=== PATIENT | male | born 1940 | race Two or more races ===

== ENCOUNTER 2017-06-26 12:51 | Outpatient (CLI) | payer OTHER ==
[~2017-06-26 12:51] MED LIST: AMLODIPINE BESYL5 MG PO; LOSARTAN-HCTZ1 EACH PO; OMEPRAZOLE20 MG; SIMVASTATIN40 MG PO; TAMS0.4C PO; ZOCOR20 MG
== END 2017-06-26 13:00 | disposition home or self-care (01) ==
LOC: RAD 12:51
DX: M46.1 Sacroiliitis, not elsewhere classified (principal)

== ENCOUNTER 2018-07-18 11:08 | Emergency (ER) | payer OTHER ==
[~2018-07-18] VITALS: Ht 175.3 cm; Wt 96.2 kg
== END 2018-07-18 16:57 | disposition home or self-care (01) ==
LOC: ER 11:08
DX: R10.31 Right lower quadrant pain (principal)

== ENCOUNTER 2018-08-06 08:35 | Outpatient (CLI) | payer OTHER | END 2018-08-06 09:07 | disposition home or self-care (01) | LOC: RAD 501 08:35 | DX: N20.0 Calculus of kidney (principal) ==

== ENCOUNTER 2018-08-08 11:00 | Day surgery (SDC) | payer OTHER, BC | END 2018-08-08 18:40 | disposition home or self-care (01) | LOC: CIR.AMB 11:00 | DX: N21.0 Calculus in bladder (principal) ==

== ENCOUNTER 2020-10-07 13:14 | Outpatient (CLI) | payer OTHER, BC | END 2020-10-07 13:28 | disposition home or self-care (01) | LOC: MRI 13:14 | PROVIDERS: ATTEND Anesthesiology | DX: M54.2 Cervicalgia (principal); G43.711 Chronic migraine without aura, intractable, with status migrainosus | CPT/HCPCS: 70551; 72141 ==

== ENCOUNTER 2021-03-30 12:26 | Outpatient (CLI) | payer OTHER | END 2021-03-30 12:45 | disposition home or self-care (01) | LOC: MRI 12:26 | PROVIDERS: ATTEND Anesthesiology | DX: M51.36 Other intervertebral disc degeneration, lumbar region (principal) | CPT/HCPCS: 72148 ==

== ENCOUNTER 2023-03-26 11:51 | Inpatient (IN) | payer OTHER, BC ==
[~2023-03-26] VITALS: Ht 172.7 cm; Wt 89.8 kg
[2023-03-26 14:12] LABS: HEMATOCRIT 44.8 % (39.0-48.0); HEMOGLOBIN 15.2 g/dL (13-16.00); MEAN CELL VOLUME 101.1 fL (80.0-100.00); MEAN CORPUSCULAR HEMOGLOBIN 34.3 pg (27.00-32.0); MEAN CORPUSCULAR HGB CONC 33.9 g/dl (32.0-36.0); RED BLOOD COUNT 4.44 M/uL (4.00-6.00); RED CELL DISTRIBUTION WIDTH 13.3 % (11.5-14.5)
[2023-03-26 14:35] LABS: URINE APPEARANCE Clear; URINE BILIRRUBIN Small (NEGATIVE); URINE BLOOD Small; URINE COLOR Dark Yellow; URINE GLUCOSE Negative (NEGATIVE); URINE LEUKOCYTE Trace; URINE NITRATE Negative
[2023-03-26 14:38] LABS: ALBUMIN 3.2 gm/dL (3.4-5.0); BILIRUBIN TOTAL 0.8 mg/dL (0.3-1.2); BILIRUBIN,CONJUGATED 0.27 mg/dL (0.0-0.2); BILIRUBIN,UNCONJUGATED 0.53 mg/dL (0.0-0.6); CALCIUM 9.2 mg/dL (8.5-10.1); CREATININE SERUM 1.03 mg/dL (0.70-1.30); GFR 69.31; POTASSIUM 3.76 mEq/L (3.5-5.1); TOTAL PROTEIN 6.9 gm/dL (6.4-8.2)
[2023-03-26 14:39] LABS: URINE BACTERIA 76.8 uL (0.0-1933); URINE EPITHELIAL CELLS 8.6 uL (0.0-38.8); URINE RBC 21.1 uL (0.0-20.8); URINE WBC 5.5 uL (0.0-23.2)
[2023-03-26 14:49] LABS: URINE PROTEIN 300 (NEGATIVE)
[2023-03-26 15:08] LABS: PLATELET COUNT 12 K/uL (150-450)
[2023-03-26 22:15] LABS: RH POSITIVE
[2023-03-27 08:28] LABS: URINE APPEARANCE Clear; URINE BILIRRUBIN Negative (NEGATIVE); URINE BLOOD Moderate; URINE COLOR Yellow; URINE GLUCOSE Negative (NEGATIVE); URINE LEUKOCYTE Negative; URINE NITRATE Negative
[2023-03-27 08:32] LABS: URINE BACTERIA 23.9 uL (0.0-1933); URINE RBC 122.7 uL (0.0-20.8)
[2023-03-27 08:50] LABS: URINE EPITHELIAL CELLS 0.9 uL (0.0-38.8); URINE PROTEIN 100 (NEGATIVE); URINE WBC 0.6 uL (0.0-23.2)
[2023-03-27 10:47] LABS: HEMATOCRIT 40.5 % (39.0-48.0); HEMOGLOBIN 13.7 g/dL (13-16.00); MEAN CELL VOLUME 101.3 fL (80.0-100.00); MEAN CORPUSCULAR HEMOGLOBIN 34.3 pg (27.00-32.0); MEAN CORPUSCULAR HGB CONC 33.9 g/dl (32.0-36.0); RED CELL DISTRIBUTION WIDTH 13.1 % (11.5-14.5)
[2023-03-27 10:53] LABS: ERYTHROCYTE SEDIMENTATION RATE 26 mm/hr
[2023-03-27 11:13] LABS: INR 1.05
[2023-03-27 11:14] LABS: PARTIAL THROMBOPLASTIN TIME 38.9 SECONDS (22.0-34.0)
[2023-03-27 11:23] LABS: ALBUMIN 2.8 gm/dL (3.4-5.0); BILIRUBIN TOTAL 0.73 mg/dL (0.3-1.2); BILIRUBIN,CONJUGATED 0.28 mg/dL (0.0-0.2); BILIRUBIN,UNCONJUGATED 0.45 mg/dL (0.0-0.6); C-REACTIVE PROTEIN 1.4 MG/DL (0.00-0.29); CHOL HDL RATIO 2.7 (0-5.0); CREATININE SERUM 0.81 mg/dL (0.70-1.30); GFR 91.46; GLOBULINA 3.2 G/DL (2.4-3.5); POTASSIUM 3.97 mEq/L (3.5-5.1)
[2023-03-27 11:31] LABS: PLATELET COUNT 11 K/uL (150-450)
[2023-03-27 12:13] LABS: COL ADP >300 SECONDS (56-102); COL EPI 234 SECONDS (82-175)
[2023-03-27 12:47] LABS: ob NEGATIVE (NEGATIVE)
[2023-03-28 06:59] LABS: HEMATOCRIT 38.7 % (39.0-48.0); HEMOGLOBIN 13.3 g/dL (13-16.00); MEAN CELL VOLUME 99.4 fL (80.0-100.00); MEAN CORPUSCULAR HEMOGLOBIN 34.2 pg (27.00-32.0); MEAN CORPUSCULAR HGB CONC 34.5 g/dl (32.0-36.0); RED BLOOD COUNT 3.89 M/uL (4.00-6.00); RED CELL DISTRIBUTION WIDTH 13.2 % (11.5-14.5)
[2023-03-28 08:19] LABS: PLATELET COUNT 17 K/uL (150-450)
[2023-03-28 19:04] LABS: HEMATOCRIT 39.6 % (39.0-48.0); HEMOGLOBIN 13.7 g/dL (13-16.00); MEAN CELL VOLUME 98.9 fL (80.0-100.00); MEAN CORPUSCULAR HEMOGLOBIN 34.1 pg (27.00-32.0); MEAN CORPUSCULAR HGB CONC 34.5 g/dl (32.0-36.0); RED CELL DISTRIBUTION WIDTH 13.3 % (11.5-14.5)
[2023-03-28 19:09] LABS: PLATELET COUNT 81 K/uL (150-450)
== END 2023-03-29 21:00 | disposition home or self-care (01) | DRG 866 ==
LOC: ER 11:51 → MEDI 18:18 → MEDJ 18:18 → SEC-K 18:28 → MEDJ 20:01
PROVIDERS: General Practice; Internal Medicine Hematology & Oncology; ADMIT Specialist; ATTEND Specialist
PROC: BW21ZZZ Computerized Tomography (CT Scan) of Abdomen and Pelvis (ICD-10-PCS; 2023-03-26)
PROC: 30233R1 Transfusion of Nonautologous Platelets into Peripheral Vein, Percutaneous Approach (ICD-10-PCS; principal; 2023-03-27)
DX: A90 Dengue fever [classical dengue] (principal); D69.6 Thrombocytopenia, unspecified; B34.9 Viral infection, unspecified; R74.01 Elevation of levels of liver transaminase levels; I10 Essential (primary) hypertension; Z87.891 Personal history of nicotine dependence

== ENCOUNTER 2024-05-24 12:13 | Emergency (ER) | payer OTHER, BC ==
[~2024-05-24] VITALS: Ht 170.2 cm; Wt 90.7 kg
[~2024-05-24 12:13] MED LIST changes: +AMLODIPINE-OLM1 EAC2; +SIMVASTATIN5 MG; +TYLENOL ARTHRI650 MG PO
[2024-05-24] MEDS ORDERED: GUAIFENESIN 200 MG/10 ML BLIST.PACK PO STA (12:46)
[2024-05-24] MEDS ORDERED: GUAIFENESIN 200 MG/10 ML BLIST.PACK PO ONE (13:07)
[2024-05-24 13:37] LABS: HEMATOCRIT 46.9 % (39.0-48.0); HEMOGLOBIN 15.9 g/dL (13-16.00); MEAN CELL VOLUME 101.2 fL (80.0-100.00); MEAN CORPUSCULAR HEMOGLOBIN 34.4 pg (27.00-32.0); PLATELET COUNT 169 K/uL (150-450); RED BLOOD COUNT 4.64 M/uL (4.00-6.00); RED CELL DISTRIBUTION WIDTH 13.2 % (11.5-14.5)
[2024-05-24 14:26] LABS: CREATININE SERUM 0.88 mg/dL (0.70-1.30); GFR 82.91; POTASSIUM 4.32 mEq/L (3.5-5.1)
== END 2024-05-24 14:52 | disposition home or self-care (01) ==
LOC: ER 12:15
PROVIDERS: General Practice
DX: R05.8 Other specified cough (principal)

== ENCOUNTER 2024-06-22 10:47 | Emergency (ER) | payer OTHER ==
[~2024-06-22] VITALS: Ht 170.2 cm; Wt 89.8 kg
[2024-06-22] MEDS ORDERED: CELECOXIB200 MG PO (11:06)
== END 2024-06-22 13:52 | disposition home or self-care (01) ==
LOC: ER 10:50
DX: K58.9 Irritable bowel syndrome, unspecified (principal); R10.9 Unspecified abdominal pain; I10 Essential (primary) hypertension